=== PATIENT | male | born 1985 | race Caucasian/White ===

== ENCOUNTER 2016-07-12 17:13 | Emergency (ER) | payer SELFPAY ==
[2016-07-12 18:01] VITALS: TEMP 97.5; BMI 30.2
[2016-07-12 20:18] VITALS: BP 145/87; PULSE 66
--- NOTE | 2016-07-12 20:28 | EDPRACDOC ---
- General Information Chief Complaint: Earache Stated Complaint: EAR PAIN Time Seen by Provider: 07/12/16 20:21 Information Source: Patient Home Medications: Home Medications Metoprolol Tartrate [Lopressor] 25 mg PO BID 03/24/15 Amoxicillin Trihydrate [Amoxicillin] 500 mg PO TID #30 tab 07/12/16 Fluticasone Propionate [Flonase Nasal [place]] 2 spray CHARY DAILY #1 each 07/12/16 Allergies/Adverse Reactions: Allergies Allergy/AdvReac Type Severity Reaction Status Date / Time No Known Allergies Allergy Verified 03/24/15 18:33 - History of Present Illness Onset: 1 WEEK HPI: PT COMPLAINS OF BILATERAL EAR PAIN, COUGH PROD OF YELLOW PHLEGM, SINUS DRAINAGE AND CONGESTION, NO FEVER OR CHILLS, NO N/V/D. USING OTC MEDS WITHOUT RELIEF. Location: bilateral ear Context: Reports: Spontaneous Onset Recently Treated Ear Infection: Reports: No Pain Severity: Reports: Moderate Associated Signs & Symptoms: Reports: Sore Throat. Denies: Fever, Discharge, Runny Nose, Toothache ED Past Medical History - History Reviewed Yes Nurses notes reviewed and agree except as marked - Patient Medical History Additional Past Medical History: PROLONGED QT SYNDROME - Social Medical History Smoking Status: Never smoker EDM Review of Systems - Review of Systems Constitutional: negative: Chills, Fever Eyes: negative: Blurred Vision, Double Vision Ears: Pain. negative: Drainage Throat: Pain Nose: Congestion. negative: Discharge Respiratory: Cough. negative: Shortness of Breath, Wheezing Cardiovascular: negative: Chest Pain Gastrointestinal: negative: Nausea, Vomiting Neurological: Headache - Physical Exam Constitutional: Alert (Awake), No apparent distress Oriented to: Time, Person, Place Last recorded Vital Signs: Last Vital Signs Temp 97.5 F 07/12/16 17:59 Pulse 66 07/12/16 20:18 Resp 16 07/12/16 20:18 BP 145/87 07/12/16 20:18 Pulse Ox 96 07/12/16 20:18 Oxygen Pulse Oxygen Saturation 96 O2 Device Room Air Oxygen Flow Rate Fraction of Inspired Oxygen ( FIO2) - HEENT Head: Normal ( normocephalic) Eye Exam: Normal (PERRL, EOMI, Sclera white) Oropharynx: Normal (Pharynx:Moist without exudate,Gums-no swelling) Tympanic Membrane: Dull ENT EAC: Normal TMJ: Normal Nose: No Symptoms Reported (septum midline) Neck: Normal (FROM, trachea at midline) HEENT Comment: MILD TTP FRONTAL AND MAXILLARY SINUSES - Respiratory/Cardiovascular Respiratory: Normal - CTA (BBS clear to auscultation without adventitious sounds ) Cardiovascular: Normal (RRR without murmur, gallop or rub) - Integumentary Skin: Normal, Warm, Dry Lymphatics: Normal (no adenopathy) - Neurologic Memory Impaired: Normal Motor Function: Normal (Normal tone, Pulses 2+ No cyanosis or edema, FROM) Cranial Nerve: Normal (CN II-X11 intact sensation, strength 5/5) Cerebellar: Normal Mood Description: Normal Perception: Normal - Differential Diagnosis Otitis Media, Sinusitis Decision Time to Discharge: 20:27 - Departure Disposition: Home Condition: Stable Final Diagnosis: Acute sinusitis Qualifiers: Sinusitis location: unspecified location Recurrence: non-recurrent Qualified Code(s): J01.90 - Acute sinusitis, unspecified Instructions: Sinusitis (ED) Education/Counseling Given To: Patient Education/Counseling Given Regarding: Diagnosis, Treatment, Prognosis, Follow Up Referrals: Jack Hensley MD [Staff Physician] - One Week Prescriptions: Amoxicillin Trihydrate [Amoxicillin] 500 mg PO TID #30 tab Fluticasone Propionate [Flonase Nasal [place]] 2 spray CHARY DAILY #1 each Additional Instructions: Rest, drink plenty of fluids, use Tylenol every 4 hours and Motrin every 6 hours as needed for pain or fever, return to the ED for any worsening symptoms or concerns.
== END 2016-07-12 20:32 | disposition home or self-care (01) ==
LOC: EDMC 17:13
DX: J01.90 Acute sinusitis, unspecified (principal)
CPT/HCPCS: 99283